=== PATIENT | male | born 1950 | race African-American/Black ===

== ENCOUNTER 2016-08-26 23:23 | Emergency (ER) | payer OTHER ==
[2016-08-26 23:57] VITALS: BP 202/92; PULSE 62; TEMP 98.4; BMI 25.8
--- NOTE | 2016-08-27 | PDOC ---
History of Present Illness - General History Source: Patient - History of Present Illness Initial Comments: 08/27/16 00:22 The patient is a 66 year old male with a PMH of HTN presented to the ED today complaining of left foot numbness for the past two weeks. The patient describes the sensation as It feels like the foot is falling asleep. The patient denies trauma to the area. The patient denies chest pain and shortness of breath. Denies: Fever, chills, abdominal pain, nausea, vomiting and diarrhea. Denies recent travel. PCP: Dr. Akanksha Payne <Akanksha Felix - Last Filed: 08/27/16 00:59> <Tiff Shane - Last Filed: 08/27/16 01:37> - General History Source: Patient <Beny Valenzuela - Last Filed: 08/27/16 01:46> - General Chief Complaint: Pain Stated Complaint: L FOOT NUMBNESS Time Seen by Provider: 08/26/16 23:57 Past History <Akanksha Felix - Last Filed: 08/27/16 00:59> <Tiff Shane - Last Filed: 08/27/16 01:37> - Past Medical History HTN: Yes - Immunization History Immunization Up to Date: No - Psycho/Social/Smoking Cessation Hx Suicidal Ideation: No Smoking Status: Yes Smoking History: Current every day smoker Have you smoked in the past 12 months: Yes Number of Cigarettes Smoked Daily: 10 Information on smoking cessation initiated: No Hx Alcohol Use: No Drug/Substance Use Hx: Yes (Heroin) <Beny Valenzuela - Last Filed: 08/27/16 01:46> - Past Medical History Allergies/Adverse Reactions: Allergies Allergy/AdvReac Type Severity Reaction Status Date / Time No Known Allergies Allergy Verified 05/19/13 18:20 Home Medications: Ambulatory Orders Ibuprofen [Motrin -] 600 mg PO TID #20 tablet 05/19/13 Methadone [Dolophine] 5 mg PO 05/19/13 Review of Systems - Review of Systems Comments:: 08/27/16 00:23 CONSTITUTIONAL: Absent: fever, no chills, no fatigue EYES: Absent: visual changes ENT: Absent: ear pain, no sore throat CARDIOVASCULAR: Absent: chest pain, no palpitations RESPIRATORY: Absent: cough, no SOB GI: Absent: abdominal pain, no nausea, no vomiting, no constipation, no diarrhea GENITOURINARY: Absent: dysuria, no frequency, no hematuria MUSKULOSKELETAL: Absent: back pain, no arthralgia, no myalgia SKIN: Absent: rash NEURO: + Left foot numbness Absent: headache <Akanksha Felix - Last Filed: 08/27/16 00:59> *Physical Exam - Vital Signs Last Vital Signs Temp Pulse Resp BP Pulse Ox 98.4 F 62 99 08/26/16 23:47 08/26/16 23:47 08/26/16 23:47 08/26/16 23:47 08/26/16 23:47 - Physical Exam Comments: 08/27/16 00:24 GENERAL: Well-appearing, well-nourished. No apparent distress. HEENT: Normocephalic, atraumatic. PERRL, EOM intact. CARDIOVASCULAR: Normal S1, S2. Regular rate and rhythm. PULMONARY: Clear to auscultation bilaterally. ABDOMEN: Soft, non-distended, non-tender. EXTREMITIES: Normal ROM in all four extremities. No gross deformities. SKIN: Warm, dry. No rash NEUROLOGICAL: Awake and Alert. Dorsum of left foot has decreased sensation. Motor is completely intact. Sensation is grossly intact. <Akanksha Felix - Last Filed: 08/27/16 00:59> - Vital Signs Last Vital Signs Temp Pulse Resp BP Pulse Ox 98.4 F 62 99 08/26/16 23:47 08/26/16 23:47 08/26/16 23:47 08/26/16 23:47 08/26/16 23:47 <Tiff Shane - Last Filed: 08/27/16 01:37> - Vital Signs Last Vital Signs Temp Pulse Resp BP Pulse Ox 98.4 F 62 99 08/26/16 23:47 08/26/16 23:47 08/26/16 23:47 08/26/16 23:47 08/26/16 23:47 <Beny Valenzuela - Last Filed: 08/27/16 01:46> Heart Score/ECG Review - ECG Impressions Comment:: 08/27/16 00:13 Sinus bradycardia @ 55 bpm Minimal voltage criteria for LVH, may be normal variant Borderline ECG <Akanksha Felix - Last Filed: 08/27/16 00:59> ED Treatment Course - LABORATORY CBC & Chemistry Diagram: 08/27/16 00:20 08/27/16 00:20 <Akanksha Felix - Last Filed: 08/27/16 00:59> - LABORATORY CBC & Chemistry Diagram: 08/27/16 00:20 08/27/16 00:20 - ADDITIONAL ORDERS Additional order review: Laboratory Results 08/27/16 08/27/16 00:20 00:20 INR 1.06 Sodium 140 Potassium 4.6 Chloride 101 Carbon Dioxide 31 Anion Gap 8 BUN 15 D Creatinine 1.1 D Creat Clearance w eGFR > 60 Random Glucose 94 Calcium 9.0 Magnesium 2.3 Total Bilirubin 0.2 D AST 20 ALT 29 D Alkaline Phosphatase 108 Total Protein 6.7 Albumin 3.8 08/27/16 00:20 RBC 5.39 MCV 82.9 MCHC 31.7 L RDW 14.2 MPV 9.1 Neutrophils % 47.6 Lymphocytes % 43.7 H Monocytes % 5.5 Eosinophils % 2.8 Basophils % 0.4 - RADIOLOGY Radiograph Interpretation: 08/27/16 01:37 EXAM: Duplex venous bilateral lower extremities Reviewed by Imaging water pollution specialist: FINDINGS: No evidence of deep venous thrombosis in the visualized segments of the right or left lower extremity deep venous system. <Tiff Shane - Last Filed: 08/27/16 01:37> - LABORATORY CBC & Chemistry Diagram: 08/27/16 00:20 08/27/16 00:20 <Beny Valenzuela - Last Filed: 08/27/16 01:46> Medical Decision Making - Medical Decision Making 08/27/16 01:45 Dr. Valenzuela: The scribe's documentation has been prepared under my direction and personally reviewed by me in its entirery. I confirm that the note above accurately reflects all work, treatment, procedures, and medical decision making performed by me. All labs and bilateral duplex are negative for pathology. Patient will be referred to neurology for further evaluation of the right foot numbness. <Beny Valenzuela - Last Filed: 08/27/16 01:46> *DC/Admit/Observation/Transfer - Attestations Scribe Attestion: 08/27/16 00:24 Documentation prepared by Akanksha Felix, acting as medical practice administrator for Beny Valenzuela MD/DO. <Akanksha Felix - Last Filed: 08/27/16 00:59> <Tiff Shane - Last Filed: 08/27/16 01:37> - Discharge Dispostion Admit: No <Beny Valenzuela - Last Filed: 08/27/16 01:46> Diagnosis at time of Disposition: Neuropathy - Discharge Dispostion Disposition: HOME Condition at time of disposition: Stable - Referrals Referrals: Akanksha Payne [Primary Care Provider] - Mireille Pineda MD [Staff Physician] - - Patient Instructions Printed Discharge Instructions: Peripheral Neuropathy
[2016-08-27 00:55] LABS: BASOPHIL 0.4 % (0-2.0); EOSINOPHIL 2.8 % (0-4.5); INR 1.06 (0.82-1.09); MCH 26.3 pg (25.7-33.7); MCHC 31.7 g/dl (32.0-35.9); MEAN CELL VOLUME 82.9 fl (80-96); MEAN PLT VOLUME 9.1 fl (7.5-11.1); NEUTROPHILS 47.6 % (42.8-82.8); PLATELET COUNT 350 K/MM3 (134-434); PROTHROMBIN TIME (PATIENT) 11.7 SEC (9.98-11.88); RDW 14.2 % (11.9-15.9); WHITE BLOOD COUNT 9.9 K/mm3 (4.0-10.0)
[2016-08-27 01:17] LABS: ALBUMIN 3.8 g/dl (3.4-5.0); ANION GAP 8 (8-16); CO2 31 mmol/L (21-32); GLUCOSE,RANDOM 94 mg/dL (74-106); MAGNESIUM 2.3 mg/dL (1.8-2.4)
[2016-08-27 01:20] LABS: ALK PHOS 108 U/L (45-117); BILIRUBIN,TOTAL 0.2 mg/dL (0.2-1.0); CREATININE 1.1 mg/dL (0.7-1.3); SGOT/AST 20 U/L (15-37); SGPT/ALT 29 U/L (12-78); TOT PROT 6.7 g/dl (6.4-8.2)
--- NOTE | 2016-08-28 15:16 | EKG ---
Test Reason : Blood Pressure : / mmHG Vent. Rate : 055 BPM Atrial Rate : 055 BPM P-R Int : 152 ms QRS Dur : 084 ms QT Int : 424 ms P-R-T Axes : 068 024 047 degrees QTc Int : 405 ms POOR DATA QUALITY, INTERPRETATION MAY BE ADVERSELY AFFECTED SINUS BRADYCARDIA MINIMAL VOLTAGE CRITERIA FOR LVH, MAY BE NORMAL VARIANT BORDERLINE ECG WHEN COMPARED WITH ECG OF 15-JUL-2011 09:21, NO SIGNIFICANT CHANGE WAS FOUND Confirmed by YOSEF HEALY MD ([id number]) on 08/28/2016 3:16:39 PM Referred By: Confirmed By:YOSEF HEALY MD
== END 2016-08-27 02:12 | disposition home or self-care (01) ==
LOC: JER 23:23
DX: G62.9 Polyneuropathy, unspecified (principal); I10 Essential (primary) hypertension
CPT/HCPCS: 36415; 80053; 83735; 85025; 85610; 93005; 93010; 93970-TC; 99282-25

== ENCOUNTER 2023-11-12 16:45 | Inpatient (IN) | payer BC, OTHER ==
[2023-11-12 18:58] VITALS: BMI 20.2
[2023-11-12] MEDS ORDERED: ONDANSETRON *ODT* 4 MG TABLET SL PRN (20:11)
[2023-11-12] MEDS ORDERED: IBUPROFEN 600 MG TABLET (FP) PO PRN (20:11)
[2023-11-12] MEDS ORDERED: BENZONATATE 200 MG CAPSULE PO PRN (20:11)
[2023-11-12] MEDS ORDERED: LOPERAMIDE HCL 2 MG CAPSULE PO PRN (20:11)
[2023-11-12] MEDS ORDERED: NALOXONE HCL (KLOXXADO) 8 MG SPRAY NS PRN (20:11)
[2023-11-12] MEDS ORDERED: IBUPROFEN 400 MG TABLET (FP) PO PRN (20:11)
[2023-11-12] MEDS ORDERED: NALOXONE HCL 0.4 MG/ML VIAL IM PRN (20:11)
[2023-11-12] MEDS ORDERED: MAGNESIUM HYDROX 2400MG/30ML ORAL SUSPENSION 30 ML CUP PO PRN (20:11)
[2023-11-12] MEDS ORDERED: BENZOCAINE/MENTHOL (CHLORASEPTIC ) LOZENGE MM PRN (20:11)
[2023-11-12] MEDS ORDERED: ACETAMINOPHEN 325 MG TABLET (FP) PO PRN (20:11)
[2023-11-12] MEDS ORDERED: MAG HYDROX/AL HYDROX/SIMETH 30 ML UNIT-DOSE CUP PO PRN (20:11)
[2023-11-12] MEDS ORDERED: guaiFENesin 600 MG TABLET.ER (FP) PO PRN (20:11)
[2023-11-12] MEDS ORDERED: POLYETHYLENE GLYCOL (HEALTHYLAX) 3350 17 GM PACKET PO PRN (20:11)
[2023-11-12] MEDS ORDERED: BISMUTH SUBSALICYLATE 524 MG/30 ML PO PRN (20:11)
[2023-11-12] MEDS ORDERED: methaDONE HCL 10 MG TABLET (FOR DETOX USE ONLY) PO ONE (20:14)
[2023-11-12] MEDS: methaDONE HCL 10 MG TABLET (FOR DETOX USE ONLY) PO ONE (21:34)
[2023-11-12] MEDS: MELATONIN 5 MG TABLETS PO SCH (21:36)
[2023-11-12] MEDS: THIAMINE 100 MG TABLET PO SCH (21:36)
[2023-11-13] MEDS: PRENATAL VITAMINS W/ FOLIC ACID TABLET (FP) PO SCH (09:31)
[2023-11-13] MEDS: NICOTINE 14 MG/24 HOURS TOPICAL PATCH TD SCH (09:31)
[2023-11-13] MEDS: NICOTINE POLACRILEX 2 MG GUM BUC PRN (09:33)
[2023-11-13 12:00] LABS: HEMATOCRIT 39.8 % (35.4-49); HEMOGLOBIN 13.5 GM/dL (11.7-16.9); MCH 28.3 pg (25.7-33.7); MCHC 33.9 g/dl (32.0-35.9); MEAN CELL VOLUME 83.6 fl (80-96); MEAN PLT VOLUME 8.9 fl (7.5-11.1); PLATELET COUNT 406 10^3/uL (134-434); RBC 4.76 M/mm3 (4.00-5.60); RDW 14.1 % (11.9-15.9); WHITE BLOOD COUNT 7.7 K/mm3 (4.0-10.0)
[2023-11-13 12:09] LABS: CHLORIDE 106 mmol/L (98-107); POTASSIUM 4.6 mmol/L (3.5-5.1); SODIUM 142 mmol/L (136-145)
[2023-11-13 12:15] LABS: ANION GAP 6 mmol/L (4-13); BLOOD UREA NITROGEN 14.6 mg/dL (7-18); CALCIUM 9.1 mg/dL (8.5-10.1); CO2 30 mmol/L (21-32); GLUCOSE,RANDOM 133 mg/dL (74-106)
[2023-11-13 12:16] LABS: ALBUMIN 3.1 g/dl (3.4-5.0)
[2023-11-13 12:18] LABS: CREATININE 0.9 mg/dL (0.55-1.3); SGPT/ALT 49 U/L (13-61)
[2023-11-13 12:19] LABS: BILIRUBIN,TOTAL 0.5 mg/dL (0.2-1); SGOT/AST 30 U/L (15-37)
[2023-11-13 12:20] LABS: TOT PROT 5.8 g/dl (6.4-8.2)
[2023-11-13 12:21] LABS: ALK PHOS 131 U/L (45-117)
[2023-11-13] MEDS: cloNIDine HCL 0.1 MG TABLET PO PRN (13:25)
[2023-11-13] MEDS ORDERED: PATIENT'S OWN MEDICATION (NON-FORMULARY) (Dorzolamide/Timolol/Pf [Dorzolamide-Timolol 2%-0 OU SCH (22:00)
[2023-11-13] MEDS ORDERED: PATIENT'S OWN MEDICATION (NON-FORMULARY) (Dorzolamide/Timolol/Pf [Dorzolamide-Timolol 2%-0 OP SCH (22:00)
[2023-11-13] MEDS ORDERED: BRIMONIDINE TARTRATE 0.15% OPHTHALMIC 5 ML BOTTLE OD SCH (22:00)
[2023-11-13] MEDS: ATORVASTATIN CA 40 MG TABLET (FP) PO SCH (22:44)
[2023-11-13] MEDS: DORZOLAMIDE 2% HCL OPHTHALMIC SOLUTION 10 ML BOTTLE OU SCH (22:45)
[2023-11-13] MEDS: BRIMONIDINE TARTRATE 0.15% OPHTHALMIC 5 ML BOTTLE OU SCH (22:45)
[2023-11-13] MEDS: TIMOLOL 0.5% OPHTHALMIC SOL 5 ML BOTTLE OU SCH (22:46)
[2023-11-13] MEDS: LATANOPROST 0.005% OPHTH SOLN 2.5ML BOTTLE OU SCH (22:48)
[2023-11-14] MEDS ORDERED: BIMATOPROST OP SCH (10:00)
[2023-11-14] MEDS: amLODIPine BESYLATE 5 MG TABLET (FP) PO SCH (10:13)
[2023-11-14] MEDS: methaDONE HCL 10 MG TABLET (FOR DETOX USE ONLY) PO ONE (10:16)
[2023-11-16 09:29] VITALS: BP 146/75; PULSE 61; RESP 16; TEMP 97.6
[2023-11-16] MEDS: amLODIPine BESYLATE 10 MG TABLET (FP) PO SCH (09:48)
[2023-11-16] MEDS: methaDONE HCL 10 MG TABLET (FOR DETOX USE ONLY) PO ONE (09:49)
== END 2023-11-16 13:04 | disposition home or self-care (01) | DRG 897 ==
LOC: YASAS 16:45 → Y6N 20:28
PROVIDERS: ADMIT Allergy & Immunology; ATTEND Surgery
PROC: HZ2ZZZZ Detoxification Services for Substance Abuse Treatment (ICD-10-PCS; principal; 2023-11-12)
DX: F11.23 Opioid dependence with withdrawal (principal); F17.210 Nicotine dependence, cigarettes, uncomplicated; E78.5 Hyperlipidemia, unspecified; H40.10X0 Unspecified open-angle glaucoma, stage unspecified; I10 Essential (primary) hypertension; R73.9 Hyperglycemia, unspecified
CPT/HCPCS: 36415; 80053; 80307; 85027; 86780; 93005; 93010